=== PATIENT | male | born 1980 | race Caucasian/White ===

== ENCOUNTER 2017-08-08 06:53 | Emergency (ER) | payer SELFPAY ==
[2017-08-08 07:01] VITALS: BP 165/112; BMI 38.4
--- NOTE | 2017-08-08 07:46 | DR.GENAD ---
HPI - PCP Primary Care Physician: KATI ([place]) - Complaint/Symptoms Chief Complaint Doctors Comments: Patient was advised that we do not refill pain medication for patient, this was the responsibility of his [facility] care physician. He was also adivsed that his primary care physician can mail him his prescription if he desired. Patient then left w/o being seen. Chief Complaint:: PT C/O LOWER BACK PAIN. PT STATES HE LIVES IN [place] AND IS OUT OF HIS PAIN. PT STATES HE IS NOT ABLE TO LEAVE HIS JOB AND GO BACK UNTIL THE . PT STATES HE HAS BEEN OUT OF HIS MEDICATIONS NOW FOR THREE DAYS AND IS IN BAD PAIN - Source History Provided: Patient - Mode of Arrival Mode of Arrival: Ambulatory - Timing Onset of Chief Complaint: 08/06/17 PMH - PMH Past Medical History: Yes Past Medical History Comment: CHRONIC BACK Past Surgical History: Yes Surgical History: Ortho Surgery Past Surgical History Comment: BACK SURGERY - Family History History of Family Medical Conditions: No - Social History Does any household member use tobacco: No Alcohol Use: None Do you use any recreational Drugs:: No Lives With: Family Lives Where: Home - infectious screening In the last 2 months have you had wt loss of >10#?: NO Have you had fever, night sweats or hemotysis?: No Have you traveled outside the country in the last 6 months?: No Isolation: Standard PE - Vital Signs Vitals: Temperature 98.2 F Pulse Rate 75 Respiratory Rate 20 Blood Pressure 165/112 O2 Sat by Pulse Oximetry 100 - General Limitations: No Limitations - Respiratory Respiratory Exam: Lower Clear to Auscultation - Diagnosis Discharge Problem: Back pain Qualifiers: Chronicity: chronic - Discharge Plan Disposition: LWBS After Triage Condition: Stable - Follow ups/Referrals Follow ups/Referrals: Rea HDZc [Primary Care Provider] - 3 days - Instructions
== END 2017-08-08 07:47 | disposition left against medical advice (07) ==
LOC: ER 06:53
DX: M54.5 Low back pain (principal)
CPT/HCPCS: 99281